=== PATIENT | male | born 1975 | race Hispanic/Latino ===

== ENCOUNTER 2019-06-15 15:29 | Emergency (ER) | payer BC, OTHER ==
[2019-06-15] MEDS ORDERED: KETOROLAC TROMETHAMINE 60 MG/2 ML VIAL ONE (16:04)
[2019-06-15] MEDS ORDERED: LIDOCAINE 5% TOPICAL PATCH TP ONE (16:04)
[2019-06-15] MEDS ORDERED: ORPHENADRINE CITRATE 30 MG/ML ML ONE (16:04)
[2019-06-15 16:08] LABS: APPEARANCE,URINE Clear (CLEAR); BILIRUBIN,URINE Negative (NEGATIVE); COLOR,URINE Yellow (YELLOW); GLUCOSE, URINE (UA) Negative (NEGATIVE); KETONES,URINE Trace mg/dL (NEGATIVE); LEUKOCYTE ESTERASE ,URINE Negative (NEGATIVE); NITRATE,URINE Negative (NEGATIVE); OCCULT BLOOD,URINE Negative (NEGATIVE); PH,URINE 5.5 (5.0-8.0); PROTEIN,URINE Negative (NEGATIVE); UROBILINOGEN,URINE 0.2 mg/dL (0.2-1.0)
== END 2019-06-15 16:59 | disposition home or self-care (01) ==
LOC: EDH 15:29
DX: M62.830 Muscle spasm of back (principal); Z87.891 Personal history of nicotine dependence
CPT/HCPCS: 81003; 93005; 96372 ×2; 99284; J1885; J2360

== ENCOUNTER 2024-03-31 09:38 | Emergency (ER) | payer BC ==
[~2024-03-31] VITALS: Ht 165.1 cm; Wt 117.9 kg
--- NOTE | 2024-03-31 10:12 | ERN ---
General Chief Complaint: Mechanical Fall Stated Complaint: PAIN TO LT SIDE OF BODY, R/T FALL Time Seen by MD: 09:41 Source: patient History of Present Illness Initial Comments PATIENT IS A 48-YEAR-OLD MALE COMING IN TO BE EVALUATED FOR COUGH AND CONGES TION. PATIENT STATES THAT HE HAS BEEN COUGHING FOR TWO WEEKS. HE ALSO STATES HE HAS A EXTENSIVE HISTORY OF CHRONIC BACK PAIN IN HIS ON MORPHINE AND HYDROCODONE FOR PAIN. HE STATES HE WAS COUGHING SO MUCH THAT HE FELL BACK. HE HAS NOT BEEN SEEN BY PCP YET. Allergies: Coded Allergies: No Known Allergies (Unverified Allergy, Unknown, 03/31/24) Past Medical History Past Medical History: High Cholesterol Medical History Other: CHRONIC BACK PAIN Past Surgical History: Other Surgical History Other: KNEE ROS Dictation CONSTITUTIONAL: NO CHILLS, NO FEVER, NO WEAKNESS, NO DIAPHORESIS, NO MALAISE. HEAD/FACE: NO SIGNS OF TRAUMA. EENT: NO EYE PAIN, NO BLURRED VISION, NO TEARING, NO DOUBLE VISION, NO EAR PAIN, NO EAR DISCHARGE, NO NOSE PAIN, NO NASAL CONGESTION, NO THROAT PAIN, NO THROAT SWELLING, NO MOUTH PAIN. RESPIRATORY: COUGH, NO ORTHOPNEA, NO SOB, NO STRIDOR, NO WHEEZING. CARDIOVASCULAR: NO CHEST PAIN, NO EDEMA, NO PALPITATIONS, NO SYNCOPE. GASTROINTESTINAL/ABDOMINAL: NO ABDOMINAL PAIN, NO CONSTIPATION, NO DIARRHEA, NO NAUSEA, NO VOMITING. GENITOURINARY: NO ABNORMAL DISCHARGE, NO DYSURIA, NO FREQUENT URINATION, NO HEMATURIA. NO COMPLAINTS OF PAIN IN THE GENITALS. MUSCULOSKELETAL: NO BACK PAIN, NO GOUT, NO JOINT PAIN, NO JOINT SWELLING, NO MUSCLE PAIN, NO MUSCLE STIFFNESS, NO NECK PAIN. INTEGUMENTARY: NO CHANGE IN COLOR, NO CHANGE IN HAIR/NAILS, NO DRYNESS, NO LESION, NO LUMPS, NO RASH. NEUROLOGICAL/PSYCH: NO ANXIETY, NOT DEPRESSED, NO EMOTIONAL PROBLEM, NO HEADACHE, NO NUMBNESS, NO PRE-EXISTING DEFICIT, NO HISTORY OF SEIZURES, NO TREMORS, NO WEAKNESS. HEMATOLOGIC/LYMPHATIC: NOT ANEMIC, NO HISTORY OF BLOOD CLOTS, NO APPARENT BLEEDING, NO BRUISING, GLANDS NOT SWOLLEN. ALL SYSTEMS NEGATIVE, EXCEPT NOTED. Physical Exam Physical Exam Dictation VITAL SIGNS: REVIEWED. GENERAL APPEARANCE: ALERT, ORIENTED X3, NO ACUTE DISTRESS, OBESE. HEAD AND FACE: NON-TRAUMATIC. EYES: PERRL, PINK CONJUNCTIVAS, EYELID NO TRAUMA, ANTERIOR CHAMBER CLEAR. EARS: PINNAS INTACT AND NO SIGNS OF TRAUMA OR ERYTHEMA. EAR CANALS CLEAR AND NO DISCHARGE. TMS ERYTHEMA. NOSE: NO DISCHARGE, NO BLEEDING. OROPHARYNX: MOUTH NORMAL, TEETH NO CARIES, TONGUE PINK. PHARYNX CLEAR, ERYTHEMA. TONSILS NO EXUDATES, NO ABSCESSES NOTED. MUCOUS MEMBRANE MOIST. NECK: SUPPLE, NON-TENDER, NO THYROMEGALY, NO MASSES, NO JVD, NO BRUITS. BREAST: DEFERRED. CHEST: NO TENDERNESS, NO CREPITUS, NO PARADOXICAL MOVEMENT, NO RETRACTIONS. LUNGS: CLEAR, WELL-VENTILATED, SYMMETRIC, NO RALES, NO WHEEZING, NO RHONCHI, NO STRIDOR, GOOD BREATH SOUNDS BILATERALLY. HEART: REGULAR RATE, REGULAR RHYTHM, NO MURMUR, NO GALLOPS. VASCULAR: NO PERIPHERAL EDEMA. ABDOMEN: SOFT, POSITIVE BOWEL SOUNDS, NONDISTENDED, NO GUARDING, NONTENDER, NO REBOUND, NO MASSES NO HEPATOMEGALY, NO SPLENOMEGALY, NO LUND'S SIGN, NO HERNIAS. RECTAL: DEFERRED. GENITAL: DEFERRED. NEUROLOGICAL: NORMAL SPEECH, GROSS MOTOR FUNCTION INTACT, GROSS SENSORY FUNCTION INTACT. MUSCULOSKELETAL: NECK NONTENDER, FULL RANGE OF MOTION, BACK NONTENDER, FULL RANGE OF MOTION. EXTREMITIES: NONTENDER, FULL RANGE OF MOTION. SKIN: COLOR PINK, DRY, NO TURGOR, NO RASH, NO LACERATIONS, NO ABRASIONS, NO CONTUSIONS. LYMPHATICS: DEFERRED. Results EKG/XRAY/US/CT/MRI X-RAY Comment [address] [address] IMAGING REPORT Signed PATIENT: CANDIDO STEPHENSON MR#: [id number] : 1975 SEX: M AGE: 48 LOCATION: [facility] ORDER 8 STATUS: REG REPORT#: [id number] SERVICE 8 REASON: COUGH ORDERING PHYSICIAN: DEBBIE BHARDWAJ MD PROCEDURE: CXR1VW - CHEST 1VW Exam Type: CHEST 1VW Clinical Information: COUGH Comparison: None Findings: The lungs are clear of infiltrates. The heart is normal in size. The bony and soft tissue structures of the chest are unremarkable. Impression: Clear lungs. DICTATED BY: ROSALINO EARLY MD DATE: 03/31/24 104 ELECTRONICALLY SIGNED BY: ROSALINO EARLY MD DATE: 03/31/24 104 MDM MDM: DIFFERENTIAL DIAGNOSIS: COUGH, URI, RHINO SINUSITIS, PATIENT IS A 48-YEAR-OLD MALE COMING IN TO BE EVALUATED FOR COUGH AND CONGESTION. PATIENT STATES THE SYMPTOMS BEGAN 2-3 WEEKS AGO. HE STATES HE HAS NOT BEEN SEEN BY HIS PCP. UPON EVALUATION ON PHYSICAL EXAM OROPHARYNGEAL ERYTHEMA BILATERAL TYMPANIC MEMBRANE CLOUDINESS MILD ERYTHEMA SUGGESTIVE OF RHINO SINUSITIS. PATIENT WILL BE DISCHARGED WITH MEDICATION FOR RHINO SINUSITIS. ED Course Orders Procedure Category Date Status Time Guaifenesin/Dextromethorphan PHA 03/31/24 Complete (Mucinex Dm 21:00 Chest 1vw RAD 03/31/24 Resulted 09:49 Dexamethasone 4mg/Ml PHA 03/31/24 Complete 1ml Vial (Dexametha 10:00 Guaifenesin Sug-Puneet PHA 03/31/24 Complete 100 Mg/5ml (Robituss 10:27 Ipratropium/Albuterol PHA 03/31/24 In Process Neb (Duoneb) 11:00 Current Medications Medications (Trade) Dose Ordered Sig/Андрей Route PRN Reason Start Time Stop Time Status Last Admin Dose Admin Albuterol (DUOneb) 2 udvial ONCE ONCE IH 03/31/24 11:00 03/31/24 11:01 Dexamethasone Sodium Phosphate (dexaMETHasone 4MG/ML 1ML VIAL) 4 mg ONCE ONCE IM 03/31/24 10:00 03/31/24 10:01 DC 03/31/24 10:21 Guaifenesin (RobiTUSSin SUGAR-FREE 100 MG/ 5 ML UDCUP) 200 mg ONCE STAT PO 03/31/24 10:27 03/31/24 10:29 DC 03/31/24 10:33 Guaifenesin/ Dextromethorphan (MUCinex DM 1 EACH TAB.SR.12H) 2 each BID PO 03/31/24 21:00 03/31/24 10:28 DC Vital Signs Date Time Temp Pulse Resp B/P (MAP) Pulse Ox O2 Delivery O2 Flow Rate FiO2 03/31/24 10:00 99.0 107 18 112/76 Room Air* 0 21 03/31/24 09:41 99.0 107 18 112/76 98 Room Air 0 DX & DISP Disposition: Discharge Departure Impression: Primary Impression: Rhinosinusitis Condition: Stable Scripts Loratadine (Loratadine) 10 Mg Tablet 1 TAB PO DAILY for allergy symptoms for 30 Days, #30 TAB 0 Refills Prov: DEBBIE BHARDWAJ MD 03/31/24 Fluticasone Propionate (Flonase Nasal [place]) 50 Mcg/Actuation [place] 2 SPRAY NS DAILY, #16 GM 0 Refills Prov: DEBBIE BHARDWAJ MD 03/31/24 Amoxicillin/Potassium Clav (Amox Tr-K Clv 875-125 mg Tab) 875 Mg-125 Mg Tablet 1 TAB PO BID for 10 Days, #20 TAB 0 Refills Prov: DEBBIE BHARDWAJ MD 03/31/24 Additional Instructions: FOLLOW-UP WITH PRIMARY CARE PROVIDER IN 1 TO 2 DAYS. TAKE MEDICATIONS DIRECTED HERE IN THE EMERGENCY ROOM. OKAY TO CONTINUE HOME MEDICATIONS UNLESS OTHERWISE DISCUSSED DURING YOUR VISIT IN THE EMERGENCY ROOM TODAY. RETURN TO YOUR NEAREST EMERGENCY ROOM IF SYMPTOMS WORSEN OR IF THERE IS NO IMPROVEMENT. CALL 911 IF YOU NEED IMMEDIATE ASSISTANCE. TAKE TYLENOL [id number] NEEDED AND IF NO CONTRAINDICATIONS ARE PRESENT. INCREASE ORAL HYDRATION. A WOUND CULTURE OR URINE CULTURE WAS ORDERED HERE IN THE EMERGENCY ROOM DEPARTMENT PLEASE FOLLOW-UP WITH PRIMARY CARE PROVIDER AND ADVISE THEM TO GET REPEAT PORTS FROM OUR FACILITY. IF YOU HAD ANY ANTONI WRAP/SPLINTS THAT WERE APPLIED HERE, PLEASE DO NOT REMOVE THEM UNTIL YOU SEE YOUR PRIMARY CARE OR SPECIALTY. REFERRALS: Referrals: NONE (PCP) SUNI RETANA III, MD, LUIS A MD Time of Disposition: 10:49 DEBBIE BHARDWAJ MD Mar 31, 2024 10:12
[2024-03-31] MEDS: dexaMETHasone SOD PHOSPHATE 4 MG/ML 1ML VIAL IM ONE (10:21)
[2024-03-31] MEDS: guaiFENesin SUGAR-FREE 100 MG/5 ML UDCUP PO STA (10:33)
--- NOTE | 2024-03-31 10:43 | HMCIMG ---
Exam Type: CHEST 1VW Clinical Information: COUGH Comparison: None Findings: The lungs are clear of infiltrates. The heart is normal in size. The bony and soft tissue structures of the chest are unremarkable. Impression: Clear lungs.
[2024-03-31] MEDS ORDERED: FLUT16H NS (10:50)
[2024-03-31] MEDS ORDERED: LORA10TA7 PO (10:50)
[2024-03-31] MEDS ORDERED: AMOX1TAB16 PO (10:50)
[2024-03-31] MEDS: IpraTROPium/alBUTERol SULFATE 3 ML SOLUTION IH ONE (10:56)
[2024-03-31 11:05] VITALS: PULSE 114; RESP 24
[2024-03-31 11:59] VITALS: BP 110/57; PULSE 119; RESP 18; TEMP 98.7; O2SAT 98
[2024-03-31] MEDS ORDERED: guaiFENesin/dextroMETHORphan 1 EACH TAB.SR.12H PO SCH (21:00)
== END 2024-03-31 12:05 | disposition home or self-care (01) ==
LOC: EDH 09:38
DX: J32.9 Chronic sinusitis, unspecified (principal); E78.00 Pure hypercholesterolemia, unspecified
CPT/HCPCS: 99284; 71045; 96372; 94640; J1100

== ENCOUNTER 2024-07-04 16:37 | Emergency (ER) | payer BC ==
[~2024-07-04] VITALS: Ht 165.1 cm; Wt 110.7 kg
[~2024-07-04 16:37] MED LIST: AMOX1TAB16 PO; FLUT16H NS; LORA10TA7 PO
[2024-07-04] MEDS: ORPHENADRINE 60MG/2ML IM STA (17:12)
[2024-07-04] MEDS: LIDOCAINE 4% ADH..PATCH TP STA (17:12)
[2024-07-04] MEDS: morPHINE 2 MG SYG IM STA (17:13)
[2024-07-04] MEDS: ketOROlac 15MG/ML VIAL (15MG/ML) IM STA (17:13)
[2024-07-04] MEDS ORDERED: LIDO1ADH82 TP (18:04)
[2024-07-04] MEDS ORDERED: METH100054 PO (18:04)
--- NOTE | 2024-07-04 18:05 | ERN ---
ED Note History of Present Illness Stated Complaint: BACK PAIN Chief Complaint: Back Pain-No Injury Time Seen by MD: 16:45 Time Seen by Midlevel: 16:50 Dictation: 49-year-old male coming in with complaints of lower back pain more so right lower back. Patient states he was here visiting his truck when he turned back to look he felt a pull in his back. Patient has a history of chronic back pain, takes hydrocodone, morphine, and gabapentin at home. Patient states prior to arrival he took one hydrocodone but his pain has not subsided. Denies having any incontinence, unilateral weakness, numbness tingling or any saddle paresthesias. Allergies: Coded Allergies: No Known Allergies (Unverified Allergy, Unknown, 03/31/24) Home Meds Active Scripts Loratadine (Loratadine) 10 Mg Tablet, 1 TAB PO DAILY for allergy symptoms for 30 Days, #30 TAB 0 Refills Prov:DEBBIE BHARDWAJ MD 03/31/24 Fluticasone Propionate (Flonase Nasal [place]) 50 Mcg/Actuation [place], 2 SPRAY NS DAILY, #16 GM 0 Refills Prov:DEBBIE BHARDWAJ MD 03/31/24 Amoxicillin/Potassium Clav (Amox Tr-K Clv 875-125 mg Tab) 875 Mg-125 Mg Tablet, 1 TAB PO BID for 10 Days, #20 TAB 0 Refills Prov:DEBBIE BHARDWAJ MD 03/31/24 Past Medical History Past Medical History: Other Additional Past Medical Hx: CHRONIC BACK PAIN Surgical History: Other Surgical History Other: LT KNEE SX Review of System Dictation Constitutional: Negative for fever,chills, and weight loss Eyes: Negative for injury, pain,redness, and discharge ENT: Negative for injury,pain or swelling Cardiovascular: Negative for chest pain, palpitations, and edema Respiratory: Negative for shortness of breath, cough, and wheezing, Abdomen/GI: Negative for abdominal pain, nausea, vomiting, diarrhea, and constipation Back: Negative for injury and pain : Negative for injury, bleeding and discharge MS/Extremity: Negative for injury and deformity, complaining of lower back pain Skin: Negative for rash, and discoloration Neuro: Negative for headache, weakness, numbness, tingling, and seizure Psych: Negative for suicide ideation, homicidal ideation, and hallucinations Review of Systems: was completed Initial Vital Sign VS Vital Signs Date Time Temp Pulse Resp B/P (MAP) Pulse Ox O2 Delivery O2 Flow Rate FiO2 07/04/24 16:39 99.0 90 18 114/78 97 Room Air 0 Physical Exam Dictation General: awake, alert, NAD Head/Face: Normocephalic, atraumatic Eyes: PERRL, EOMI, vision at baseline ENT: oral cavity clear, TMs clear, no signs of infection Neck: Trachea midline, supple, no nuchal rigidity Cardiovascular: RRR, normal S1/S2, No MRGs, no JVD Respiratory: CTAB, no respiratory distress, No rales or wheezes Abdomen: Soft, non-tender, non-distended, normal bowel sounds, no guarding or rebound. Skin: Warm, dry, normal turgor, no rash MS/Extremity: Pulses equal, no cyanosis, neurovascular intact, FROM, complaining of back pain patient with the right lower back away from the L-spine Neuro: COAx4, GCS 15, strength 5/5, CN 2-12 intact, normal cerebellar exam, normal gait, Psych: Normal behavior, mood, and affect normal ED Course ED Course Orders Procedure Category Date Status Time Orphenadrine Citrate PHA 07/04/24 Complete (Norflex) 16:55 Ketorolac PHA 07/04/24 Complete Tromethamine 15mg/Ml 16:55 Lidocaine (Lidocaine PHA 07/04/24 Complete Patch 4%) 16:55 Morphine 2mg Syg PHA 07/04/24 Complete (Morphine 2mg Syg) 16:55 Current Medications Medications (Trade) Dose Ordered Sig/Андрей Route PRN Reason Start Time Stop Time Status Last Admin Dose Admin Ketorolac Tromethamine (toRADol) 15 mg ONCE STAT IM 07/04/24 16:55 07/04/24 16:59 DC 07/04/24 17:13 Lidocaine (Lidocaine Patch 4%) 1 each ONCE STAT TP 07/04/24 16:55 07/04/24 16:59 DC 07/04/24 17:12 Morphine Sulfate (morPHINE 2MG SYG) 2 mg ONCE STAT IM 07/04/24 16:55 07/04/24 16:59 DC 07/04/24 17:13 Orphenadrine Citrate (Norflex) 60 mg ONCE STAT IM 07/04/24 16:55 07/04/24 16:59 DC 07/04/24 17:12 Vital Signs Date Time Temp Pulse Resp B/P (MAP) Pulse Ox O2 Delivery O2 Flow Rate FiO2 07/04/24 16:39 99.0 90 18 114/78 97 Room Air 0 Medical Decision Making MDM MDM:49-year-old male coming in with complaints of lower back pain more so right lower back. Patient states he was here visiting his truck when he turned back to look he felt a pull in his back. Patient has a history of chronic back pain, takes hydrocodone, morphine, and gabapentin at home. Patient states prior to arrival he took one hydrocodone but his pain has not subsided. Denies having any incontinence, unilateral weakness, numbness tingling or any saddle paresthesias. After pain medication patient states feels much better. We will discharge patient on lidocaine patch and muscle relaxer to take at home in her distention with the his pain medication. Discussed with the patient admit the worsens to return back to the hospital otherwise follow up with his pain specialist outpatient. Patient verbalized understanding, answered all questions. Differential diagnosis: Chronic back pain, muscle spasm Rationale: Tests considered and ordered secondary to shared decision making include: Previous outside records reviewed: Old ER visits. Risk of complication and/or morbidity or mortality of patient management: None Medications-Per medication reconciliation Need for hospitalization: Patient does not meet criteria for hospitalization. Need for emergency major/minor surgery: No There are no social concerns with this patient. Prescription drug management Prescriptions will include symptomatic care Patient's prior external medical records from other ER visits were reviewed by me as indicated. Prior testing and results from previous visits were reviewed. Prior tests were taken into account with medical decision making and resource utilization, independent historian/historians were used to obtain complete medic al history. I independently interpreted the test that were performed, results were reviewed by me and considered findings on radiology if ordered. Medical management and examination interpretation discussions were had by me with other qualified healthcare professionals as indicated for the patient's care. DX & DISP Disposition: Discharge Departure Impression: Primary Impression: Back pain Condition: Stable Scripts Methocarbamol (Methocarbamol) 1,000 Mg Tablet 1000 MG PO TID PRN for MODERATE PAIN for 5 Days, #15 TAB Prov: FANGEARL [employer] 07/04/24 Lidocaine (Lidocaine) 4 % Adh..patch 1 PATCH TP DAILY for 10 Days, #10 PATCH 0 Refills Prov: EARL FANG NP 07/04/24 Additional Instructions: Take muscle relaxer and lidocaine patch and conducting to your pain medication. Follow up with your pain specialist outpatient with the in the next few days. If you develop any numbness tingling incontinence please return back to the emergency room. Referrals: SELF,REFERRAL (PCP) Time of Disposition: 18:05 I have reviewed the case, and I agree with, Diagnosis and Plan EARL FANG NP July 04, 2024 18:05
[2024-07-04 18:06] VITALS: BP 115/79; PULSE 88; RESP 18; TEMP 98.9; O2SAT 97
== END 2024-07-04 18:09 | disposition home or self-care (01) ==
LOC: EDH 16:37
DX: M54.50 Low back pain, unspecified (principal)
CPT/HCPCS: 99284; 96372 ×3; J1885; J2270; J2360